=== PATIENT | female | born 1950 | race Caucasian/White ===

== ENCOUNTER 2016-09-03 11:37 | Emergency (ER) | payer OTHER, MEDICARE ==
[~2016-09-03 11:37] MED LIST: AMIT25 PO; AMIT50 PO; FISH-EPA1000 MG PO; GLUCPH PO; HYZAAR1 TAB PO; LEXAPRO20 PO; LIBRAX PO; METHOC500B PO; NEUR300 PO; NEXIUM40 PO; NIACIN TR1000 MG PO; PREV30 PO; PRILOSEC40 MG PO; RELPAX20 MG PO; REQUIP1 PO; ULTRAM50 PO; VICODINTAB PO; VYTORIN 10/40 T1 TAB PO; ZOCOR40 PO; ZYRTEC ALLGY10 MG PO
== END 2016-09-03 13:24 | disposition home or self-care (01) ==
LOC: ER 11:37
DX: S52.502A Unspecified fracture of the lower end of left radius, initial encounter for closed fracture (principal); I10 Essential (primary) hypertension; K21.9 Gastro-esophageal reflux disease without esophagitis; E11.9 Type 2 diabetes mellitus without complications; Z90.710 Acquired absence of both cervix and uterus; Z88.8 Allergy status to other drugs, medicaments and biological substances; Z79.84 Long term (current) use of oral hypoglycemic drugs; Z79.899 Other long term (current) drug therapy; W19.XXXA Unspecified fall, initial encounter
CPT/HCPCS: 72100; 73110-LT; 73502-LT; 96374; 99284; J1170; J2405